=== PATIENT | male | born 1995 | race Caucasian/White ===

== ENCOUNTER 2019-01-05 00:02 | Emergency (ER) | payer OTHER ==
[~2019-01-05] VITALS: Ht 182.9 cm; Wt 61.7 kg
[2019-01-05 00:22] VITALS: BP 129/80
[2019-01-05] MEDS ORDERED: TRAMADOL 50 MG50 MG PO (00:26)
[2019-01-05] MEDS ORDERED: AMOXICILLIN 50500 MG PO (00:26)
[2019-01-05] MEDS ORDERED: LIDOCAINE VISC100 ML SWISH&SPIT (00:26)
== END 2019-01-05 00:32 | disposition home or self-care (01) ==
LOC: M.ERS 00:02
DX: K04.7 Periapical abscess without sinus (principal); Z88.1 Allergy status to other antibiotic agents; Z88.2 Allergy status to sulfonamides